=== PATIENT | female | born 1945 | race American Indian/Alaskan Native ===

== ENCOUNTER 2016-06-07 22:23 | Emergency (ER) | payer MEDICARE ==
--- NOTE | 2016-06-07 23:08 | Emergency Department Report ---
ED General Adult HPI - General Chief complaint: Recheck/Abnormal Lab/Rx Stated complaint: HYPOPOTASSIUM Time Seen by Provider: 06/07/16 22:52 Source: patient, RN notes reviewed Mode of arrival: Stretcher Limitations: Altered Mental Status - History of Present Illness Initial comments: This is a 70-year-old female, whom I have evaluated in the past. Has a past medical history of end-stage renal disease on dialysis. Also has a past medical history of diabetes. Her operating engineer is Dr. Hensley. She was at dialysis yesterday, and received her normal length induration of dialysis (Monday). The patient reports that she typically gets dialysis Monday, today, Monday. The patient is sent to the ER after outpatient laboratory studies performed today demonstrated hypokalemia at 2.1. The patient's upon arrival to the ER developed sudden onset of altered mental status. Her sugar was approximately 40, and a serum glucose was 27. She was given an amp of D50 right away, and her glucose improved, and her mental status improved. As per review of her recent medications, she is on insulin but does not appear to be on any long-acting oral medications. Of note, family is unable to provide an up-to-date list of her medications. The patient denies headache, neck pain, chest pain, abdominal pain or shortness of breath. She admits to chronic bilateral anterior foot pain and discoloration. -: unknown Severity scale (0 -10): 0 Consistency: now resolved Improves with: medication Associated Symptoms: confusion - Related Data Home Medications Medication Instructions Recorded Confirmed Last Taken Citalopram [celeXA] 10 mg PO QDAY 06/07/16 06/07/16 Unknown Ergocalciferol [Vitamin D2] 50,000 unit PO DAILY 06/07/16 06/07/16 Unknown Gabapentin [Neurontin] 100 mg PO BID 06/07/16 06/07/16 Unknown Insulin Aspart [Novolog Flexpen] 4 unit SQ QAC 06/07/16 06/07/16 Unknown Insulin Detemir [Levemir] 4 unit SQ QHS 06/07/16 06/07/16 Unknown Multivitamin Tab [Multiple Vitamin 1 each PO QDAY 06/07/16 06/07/16 Unknown TAB (Theragran)] Tiotropium [Spiriva] 18 mcg IH QDAY 06/07/16 06/07/16 Unknown amLODIPine [Norvasc] 10 mg PO DAILY 06/07/16 06/07/16 Unknown Previous Rx's Medication Instructions Recorded Last Taken Type Magnesium Oxide 400 mg PO QDAY #10 tablet 06/08/16 Unknown Rx Potassium Chloride [K-Dur] 20 meq PO BID #18 tab 06/08/16 Unknown Rx Allergies Allergy/AdvReac Type Severity Reaction Status Date / Time No Known Allergies Allergy Unverified 05/13/16 15:35 ED Review of Systems ROS: Stated complaint: HYPOPOTASSIUM Other details as noted in HPI Constitutional: denies: fever Eyes: denies: eye discharge ENT: denies: epistaxis Respiratory: denies: cough Cardiovascular: denies: chest pain Gastrointestinal: denies: vomiting Genitourinary: as per HPI Musculoskeletal: as per HPI Skin: as per HPI Neurological: weakness Psychiatric: as per HPI ED Past Medical Hx - Past Medical History Previous Medical History?: Yes Hx Hypertension: Yes Hx Diabetes: Yes Hx Renal Disease: Yes (dialysis MWF) - Surgical History Past Surgical History?: Yes Hx Appendectomy: Yes Additional Surgical History: vas cath to right chest - Social History Smoking Status: Never Smoker Substance Use Type: None - Medications Home Medications: Home Medications Medication Instructions Recorded Confirmed Last Taken Type Citalopram [celeXA] 10 mg PO QDAY 06/07/16 06/07/16 Unknown History Ergocalciferol [Vitamin D2] 50,000 unit PO DAILY 06/07/16 06/07/16 Unknown History Gabapentin [Neurontin] 100 mg PO BID 06/07/16 06/07/16 Unknown History Insulin Aspart [Novolog Flexpen] 4 unit SQ QAC 06/07/16 06/07/16 Unknown History Insulin Detemir [Levemir] 4 unit SQ QHS 06/07/16 06/07/16 Unknown History Multivitamin Tab [Multiple Vitamin 1 each PO QDAY 06/07/16 06/07/16 Unknown History TAB (Theragran)] Tiotropium [Spiriva] 18 mcg IH QDAY 06/07/16 06/07/16 Unknown History amLODIPine [Norvasc] 10 mg PO DAILY 06/07/16 06/07/16 Unknown History Magnesium Oxide 400 mg PO QDAY #10 tablet 06/08/16 Unknown Rx Potassium Chloride [K-Dur] 20 meq PO BID #18 tab 06/08/16 Unknown Rx ED Physical Exam - General Limitations: Altered Mental Status General appearance: alert, in no apparent distress - Head Head exam: Present: atraumatic, normocephalic - Eye Eye exam: Present: normal appearance - ENT ENT exam: Present: mucous membranes dry - Neck Neck exam: Present: normal inspection, full ROM. Absent: tenderness, meningismus - Respiratory Respiratory exam: Present: normal lung sounds bilaterally. Absent: respiratory distress, wheezes, rales, rhonchi, stridor, chest wall tenderness - Cardiovascular Cardiovascular Exam: Present: regular rate, normal rhythm, normal heart sounds, other (there is a right-sided thoracic wall hemodialysis access catheter noted. No redness, pus, streaking, cellulitis.). Absent: bradycardia, tachycardia, systolic murmur, diastolic murmur, rubs, gallop - GI/Abdominal GI/Abdominal exam: Present: soft, normal bowel sounds. Absent: distended, tenderness, guarding, rebound, rigid, pulsatile mass - Extremities Exam Extremities exam: Present: normal inspection, full ROM, normal capillary refill , other (chronic discoloration noted to the bilateral lower extremities. 2+ pulses noted.). Absent: tenderness, pedal edema, joint swelling, calf tenderness - Back Exam Back exam: Present: normal inspection, full ROM. Absent: tenderness, CVA tenderness (R), CVA tenderness (L), muscle spasm, paraspinal tenderness, vertebral tenderness - Neurological Exam Neurological exam: Present: altered, other (the patient moves 4 extremities. Sensation is intact to light touch. No obvious facial droop.) - Psychiatric Psychiatric exam: Present: normal affect, normal mood - Skin Skin exam: Present: warm, dry, intact, normal color. Absent: rash ED Course Vital Signs 06/07/16 06/07/16 06/08/16 22:44 22:48 00:00 Temperature 98.1 F 98.2 F Pulse Rate 68 65 65 Respiratory 20 20 18 Rate Blood Pressure 112/53 Blood Pressure 112/53 128/57 [Left] O2 Sat by Pulse 98 98 97 Oximetry 06/08/16 06/08/16 06/08/16 01:00 01:42 02:08 Temperature Pulse Rate 66 67 67 Respiratory 20 18 20 Rate Blood Pressure Blood Pressure 128/51 118/54 131/51 [Left] O2 Sat by Pulse 97 100 97 Oximetry - Reevaluation(s) Reevaluation #1: 06/08/16 00:12 Differential diagnosis: Hypokalemia, hypomagnesemia, chronic renal insufficiency , hypoglycemia, urinary tract infection, pneumonia Assessment and plan: 70-year-old female who is essentially presenting with an identical presentation as when I had her on 05/13/2016. He, she is alert and oriented to name, year, month and location. Accu-Chek is improved. She is found to be hypomagnesemic, hypokalemic, with an abnormal EKG. She does not appear to be volume overloaded. This is similar to prior presentation. She is clinically well-appearing after her hypoglycemia is resolved. 06/08/16 02:10 Reevaluation #2: 06/08/16 02:09 Patient has been observed in the ER for a prolonged period of time. She is noted to be eating candy bars, and repeat fingersticks have been within normal limits. X-ray chest demonstrates no pneumonia. Urinalysis is not consistent with UTI. Appropriate mental status. The case was discussed with her covering operating engineer, Dr. Hensley. Recommends discharge with oral potassium and magnesium supplementation, patient to follow-up in clinic. ED Medical Decision Making - Lab Data Result diagrams: 06/07/16 23:06 06/07/16 23:06 Vital Signs 06/07/16 22:44 Temperature 98.1 F Pulse Rate 68 Respiratory 20 Rate Blood Pressure 112/53 Blood Pressure 112/53 [Left] O2 Sat by Pulse 98 Oximetry Lab Results 06/07/16 06/07/16 06/07/16 Range/Units 23:06 23:06 23:18 WBC 7.1 (4.5-11.0) K/mm3 RBC 3.31 L (3.65-5.03) M/mm3 Hgb 9.6 L (10.1-14.3) gm/dl Hct 30.3 (30.3-42.9) % MCV 91 (79-97) fl MCH 29 (28-32) pg MCHC 32 (30-34) % RDW 18.3 H (13.2-15.2) % Plt Count 312 (140-440) K/mm3 APTT 28.1 (24.2-36.6) Sec. Sodium 134 L (137-145) mmol/L Potassium 2.1 L* (3.6-5.0) mmol/L Chloride 93.5 L (98-107) mmol/L Carbon Dioxide 20 L (22-30) mmol/L Anion Gap 23 mmol/L BUN 28 H (7-17) mg/dL Creatinine 4.8 H (0.7-1.2) mg/dL Estimated GFR 11 ml/min BUN/Creatinine Ratio 5.83 % Glucose 27 L* (65-100) mg/dL Lactic Acid (0.7-2.0) mmol/L Calcium 6.7 L (8.4-10.2) mg/dL Magnesium 1.4 L (1.7-2.3) mg/dL Ammonia (25-60) umol/L TSH (0.270-4.200) mlU/mL Urine Color (Yellow) Urine Turbidity (Clear) Urine pH (5.0-7.0) Ur Specific [place] (1.003-1.030) Urine Protein (Negative) mg/dL Urine Glucose (UA) (Negative) mg/dL Urine Ketones (Negative) mg/dL Urine Blood (Negative) Urine Nitrite (Negative) Urine Bilirubin (Negative) Urine Urobilinogen (<2.0) mg/dL Ur Leukocyte Esterase (Negative) Urine WBC (Auto) (0.0-6.0) /HPF Urine RBC (Auto) (0.0-6.0) /HPF U Epithel Cells (Auto) (0-13.0) /HPF Urine Bacteria (Auto) (Negative) /HPF Amorphous Crystals Salicylates (2.8-20.0) mg/dL Plasma/Serum Alcohol (0-0.07) gm% 06/07/16 06/07/16 06/07/16 Range/Units 23:18 23:18 23:18 WBC (4.5-11.0) K/mm3 RBC (3.65-5.03) M/mm3 Hgb (10.1-14.3) gm/dl Hct (30.3-42.9) % MCV (79-97) fl MCH (28-32) pg MCHC (30-34) % RDW (13.2-15.2) % Plt Count (140-440) K/mm3 APTT (24.2-36.6) Sec. Sodium (137-145) mmol/L Potassium (3.6-5.0) mmol/L Chloride (98-107) mmol/L Carbon Dioxide (22-30) mmol/L Anion Gap mmol/L BUN (7-17) mg/dL Creatinine (0.7-1.2) mg/dL Estimated GFR ml/min BUN/Creatinine Ratio % Glucose (65-100) mg/dL Lactic Acid 1.0 (0.7-2.0) mmol/L Calcium (8.4-10.2) mg/dL Magnesium (1.7-2.3) mg/dL Ammonia 30.0 (25-60) umol/L TSH 1.580 (0.270-4.200) mlU/mL Urine Color (Yellow) Urine Turbidity (Clear) Urine pH (5.0-7.0) Ur Specific [place] (1.003-1.030) Urine Protein (Negative) mg/dL Urine Glucose (UA) (Negative) mg/dL Urine Ketones (Negative) mg/dL Urine Blood (Negative) Urine Nitrite (Negative) Urine Bilirubin (Negative) Urine Urobilinogen (<2.0) mg/dL Ur Leukocyte Esterase (Negative) Urine WBC (Auto) (0.0-6.0) /HPF Urine RBC (Auto) (0.0-6.0) /HPF U Epithel Cells (Auto) (0-13.0) /HPF Urine Bacteria (Auto) (Negative) /HPF Amorphous Crystals Salicylates (2.8-20.0) mg/dL Plasma/Serum Alcohol (0-0.07) gm% 06/07/16 06/07/16 06/07/16 Range/Units 23:18 23:18 23:53 WBC (4.5-11.0) K/mm3 RBC (3.65-5.03) M/mm3 Hgb (10.1-14.3) gm/dl Hct (30.3-42.9) % MCV (79-97) fl MCH (28-32) pg MCHC (30-34) % RDW (13.2-15.2) % Plt Count (140-440) K/mm3 APTT (24.2-36.6) Sec. Sodium (137-145) mmol/L Potassium (3.6-5.0) mmol/L Chloride (98-107) mmol/L Carbon Dioxide (22-30) mmol/L Anion Gap mmol/L BUN (7-17) mg/dL Creatinine (0.7-1.2) mg/dL Estimated GFR ml/min BUN/Creatinine Ratio % Glucose (65-100) mg/dL Lactic Acid (0.7-2.0) mmol/L Calcium (8.4-10.2) mg/dL Magnesium (1.7-2.3) mg/dL Ammonia (25-60) umol/L TSH (0.270-4.200) mlU/mL Urine Color Yellow (Yellow) Urine Turbidity Clear (Clear) Urine pH 5.0 (5.0-7.0) Ur Specific [place] 1.011 (1.003-1.030) Urine Protein 100 mg/dl (Negative) mg/dL Urine Glucose (UA) Neg (Negative) mg/dL Urine Ketones Neg (Negative) mg/dL Urine Blood Neg (Negative) Urine Nitrite Neg (Negative) Urine Bilirubin Neg (Negative) Urine Urobilinogen < 2.0 (<2.0) mg/dL Ur Leukocyte Esterase Neg (Negative) Urine WBC (Auto) 3.0 (0.0-6.0) /HPF Urine RBC (Auto) 1.0 (0.0-6.0) /HPF U Epithel Cells (Auto) < 1.0 (0-13.0) /HPF Urine Bacteria (Auto) 1+ (Negative) /HPF Amorphous Crystals Few Salicylates < 0.3 L (2.8-20.0) mg/dL Plasma/Serum Alcohol < 0.01 (0-0.07) gm% - EKG Data 06/08/16 00:14 sinus bradycardia, 62 beats per minute, prolonged QTC at 511 ms, U waves are noted, biphasic T wave is noted in V2, V3, abnormal EKG, not morphologically consistent with STEMI, there is no chest pain, nonspecific changes have taken place with compared to old EKG from 05/13/2016. Critical care attestation.: If time is entered above; I have spent that time in minutes in the direct care of this critically ill patient, excluding procedure time. ED Disposition Clinical Impression: Hypomagnesemia, Hypokalemia, Hypoglycemia, ESRD (end stage renal disease) on dialysis Disposition: DISCHARGED TO HOME OR SELFCARE Is pt being admited?: Yes Condition: Good Instructions: Chronic Kidney Disease (ED) Additional Instructions: Take the potassium and magnesium supplementation as directed. Make certain to eat 3 full meals a day. Make certain to have family members around you when administering your insulin. Cultures were sent today, was also be available in the next 3-5 days. Please have your primary care doctor contact the medical records department to obtain culture results. Follow-up with her primary care doctor or operating engineer within the next 3-5 days. Return to the ER right away with fevers, chills, chest pain, shortness of breath, nausea or vomiting, inability to tolerate liquid feeds. Prescriptions: Potassium Chloride [K-Dur] 20 meq PO BID #18 tab Magnesium Oxide 400 mg PO QDAY #10 tablet Referrals: PRIMARY CAREMD [Primary Care Provider] - 3-5 Days
[2016-06-07] MEDS ORDERED: D50W (25GM) IV ONE (23:19)
[2016-06-07 23:58] LABS: Hematocrit 30.3 % (30.3-42.9); Hemoglobin 9.6 gm/dl (10.1-14.3); Mean Corpuscular HGB Conc 32 % (30-34); Mean Corpuscular Hemoglobin 29 pg (28-32); Mean Corpuscular Volume 91 fl (79-97); Platelet Count 312 K/mm3 (140-440); Red Blood Count 3.31 M/mm3 (3.65-5.03); Red Cell Distribution Width 18.3 % (13.2-15.2); White Blood Count 7.1 K/mm3 (4.5-11.0)
[2016-06-08] LABS: BUN/Creatinine Ratio 5.83; Calcium 6.7 mg/dL (8.4-10.2); Chloride 93.5 mmol/L (98-107); Magnesium 1.4 mg/dL (1.7-2.3)
[2016-06-08 00:08] LABS: Bacteria,Urine 1+ /HPF (Negative); Bilirubin,Urine NEG (Negative); Blood,Urine NEG (Negative); Ketones,Urine NEG (Negative); Leukocyte Esterase,Urine NEG (Negative); Nitrite,Urine NEG (Negative); Urobilinogen,Urine < 2.0 mg/dL (<2.0)
[2016-06-08 00:09] LABS: Potassium 2.1 mmol/L (3.6-5.0)
[2016-06-08] MEDS ORDERED: D50W (25GM) IV ONE ×2 (00:16→00:39)
[2016-06-08] MEDS ORDERED: K-DUR PO ONE (00:16)
[2016-06-08] MEDS: KCL 10MEQ/100ML 100 ML IV SCH ×2 (00:54→02:08)
--- NOTE | 2016-06-08 01:22 | XRay Report ---
FINAL REPORT PROCEDURE: XR CHEST 1V AP TECHNIQUE: Chest radiograph anteroposterior view. CPT 36658 HISTORY: Altered Mental Status COMPARISON: No prior studies are available for comparison. FINDINGS: Heart: Normal. Mediastinum/Vessels: Normal. Lungs/Pleural space: Lungs are well-expanded. There are no acute infiltrates. There are chronic fibrotic changes. There is discoid atelectasis at the right lung base. There are no effusions or pneumothoraces.. Bony thorax: No acute osseous abnormality. Life support devices: There is a right-sided PermCath. The tip is in the superior vena cava.. IMPRESSION: The heart size is normal. Lungs are well-expanded. There are no acute infiltrates. There are chronic fibrotic changes. There is discoid atelectasis at the right lung base. There are no effusions or pneumothoraces.. There is a right-sided PermCath. The tip is in the superior vena cava.. .
[2016-06-08] MEDS ORDERED: KCL 10MEQ/100ML 100 ML IV ONE (01:40)
[2016-06-08] MEDS ORDERED: MAG-OX PO STA (02:43)
[2016-06-08 07:19] VITALS: BP 128/74
== END 2016-06-08 07:17 | disposition home or self-care (01) ==
LOC: ED 22:23
DX: E11.649 Type 2 diabetes mellitus with hypoglycemia without coma (principal); E11.22 Type 2 diabetes mellitus with diabetic chronic kidney disease; I12.0 Hypertensive chronic kidney disease with stage 5 chronic kidney disease or end stage renal disease; N18.6 End stage renal disease; E83.42 Hypomagnesemia; E87.6 Hypokalemia; Z99.2 Dependence on renal dialysis; Z79.4 Long term (current) use of insulin
CPT/HCPCS: 36415; 71010; 80048; 81001; 82140; 82550; 82962; 83735; 84443; 85027; 85730; 87086; 93005; 93010; 96361; 96374; 99285; G0480; J3480; 80320